=== PATIENT | male | born 1980 | race Caucasian/White ===

== ENCOUNTER 2021-06-29 16:27 | Observation (INO) | payer OTHER, SELFPAY ==
[2021-06-29] VITALS (9 sets, daily range): BP systolic 143–165; BP diastolic 77–95; PULSE 87–134; RESP 14–18; TEMP 36.6–36.7; O2SAT 94–100; BMI 26.1
[2021-06-29] MEDS: Ziprasidone IM 20 MG/ML VIAL IM (16:29)
--- NOTE | 2021-06-29 16:39 | EX.ED.SAOD ---
HPI History of Present Illness Chief Complaint: ETOH Intox Informant: patient Onset/Context/Timing Onset: Today Current Severity: Moderate Maximum Severity: Moderate Narrative Narrative: 41-year-old male reportedly intoxicated trying to get into another person's vehicle and the physicians light. Brought in by police. Patient is belligerent. Limited history. Prior similar symptoms: Yes Recent Illness/Hospitalization: No ROS ROS ED ROS Narrative Unable to obtain due to the patient's mental condition and intoxication. Review of Systems ROS Unobtainable: due to mental condition and due to mental status EXAM Physical Exam Narrative Exam Narrative: Middle-age male argumentative with staff, belligerent and yelling. Police are involved. Currently has been restrained to the bed. Vital signs initial blood pressure 145/85 pulse 134. Afebrile. Pulse ox 94%. HEENT exam pupils round reactive light. Is no signs of trauma to his face or scalp. Neck nontender. Lungs clear to auscultation. Heart tachycardic no murmur. Abdomen soft nontender normal bowel sounds no peritoneal signs. Moving all 4 extremities. Restrained. Nontender no deformity. Neurologically is uncooperative at this time. Is yelling. He is moving all 4 extremities. Const Vital Signs: 06/29/21 16:37 06/29/21 16:58 06/29/21 17:09 Temperature 98.0 F Temperature Source Temporal Pulse Rate 134 H 122 H 120 H Respiratory Rate 14 18 14 Blood Pressure 145/85 H 143/93 H 144/88 H Blood Pressure Mean 105 109 106 Pulse Ox 94 97 97 Oxygen Delivery Method Room Air Nasal Cannula Nasal Cannula Oxygen Flow Rate (L/min) 2 2 06/29/21 18:31 06/29/21 19:23 Temperature Temperature Source Pulse Rate 95 87 Respiratory Rate 14 15 Blood Pressure 145/95 H 148/91 H Blood Pressure Mean 111 110 Pulse Ox 99 99 Oxygen Delivery Method Nasal Cannula Nasal Cannula Oxygen Flow Rate (L/min) 2 2 Positive well nourished and well developed; Negative for cachectic or contractures General Appearance ED: well developed; Negative for cachectic, contractures or pallor Nutritional Appearance: Negative for cachectic HEENT Reports moist mucous membranes atraumatic; Negative for trauma or tenderness Eyes PERRL and EOMs intact bilaterally Neck no lymphadenopathy, supple and no JVD Thyroid: Negative for tender Lymph Lymphatic: no lymphadenopathy noted; Negative for lymphadenopathy Chest Wall inspection of chest normal and palpation of chest normal Resp normal respiratory effort and clear to auscultation bilaterally Auscultation: Negative for rales, rhonchi or wheezes Cardio regular rhythm, S1 normal heart sound, S2 normal heart sound and no murmurs Rate: tachycardic GI soft to palpation, non-tender, non-distended and no masses Inspection: Negative for abdominal distention Palpation: Negative for tender, guarding or rigid Back/Spine no CVA tenderness Extremity General Extremety ED: Negative for edema or tenderness General Extremity: Negative for edema Neuro Neuro Narrative: Yelling, combative and intoxicated. Sensorium / Orientation: alert Psych Attitude: agitated and aggressive Skin General Skin Exam: Negative for jaundice or pallor Lesions: no lesions Rashes: no rashes MDM MDM MDM Narrative Medical decision making narrative: Patient was treated with IM Geodon to try to help him calm down and relax. Screening labs are being obtained with alcohol level. He will be medically cleared for the police to [facility]. Please officer was able to get additional history of the patient's . There is been some discord at home. Recently he was found intoxicated with a 3-year-old child at home. This is all according the . She told it him that she was going to leave him. He has been drinking heavily since that time. Repeat exam patient is doing well at 7:15 PM. He is awake. He is now answering questions. He states he has been drinking heavily for days. He denies any complaints on feeling hung over. His abdomen is benign. His lungs are clear. His heart is mildly tachycardic at 104. His current blood pressure 156/100. Lab Data Attestation: I reviewed the patient's lab results. Lab results narrative: CBC shows a white count 9. Hemoglobin is 16.9. Lites show a gap of 21. BUN is 17 creatinine 1.15. Glucose of 133. Liver enzymes are unremarkable. Alcohol is elevated 476. Tox screen is negative. Labs: Laboratory Results - last 24 hr 06/29/21 06/29/21 06/29/21 16:32 16:32 16:32 WBC 9.1 RBC 5.48 Hgb 16.9 H Hct 50.1 MCV 91.4 MCH 30.8 MCHC 33.7 RDW Std Deviation 42.0 RDW Coeff of Ester 12.5 Plt Count 302 MPV 8.6 Immature Gran % (Auto) 0.400 Neut % (Auto) 70.4 H Lymph % (Auto) 23.4 [place] % (Auto) 4.7 Eos % (Auto) 0.7 Baso % (Auto) 0.4 Absolute Neuts (auto) 6.4 Absolute Lymphs (auto) 2.13 Nucleated RBC % 0 Sodium 143 Potassium 3.5 Chloride 101 Carbon Dioxide 21.0 Anion Gap 21 H BUN 17 Creatinine 1.15 Estim Creat Clear Calc 79.03 Est GFR (MDRD) Af Amer 90 Est GFR (MDRD) Non-Af 74 BUN/Creatinine Ratio 14.8 Glucose 133 H Calcium 8.6 Total Bilirubin 0.30 AST 33 ALT 25 Alkaline Phosphatase 44 L Total Protein 8.4 H Albumin 4.3 Globulin 4.1 Albumin/Globulin Ratio 1.0 Urine Opiates Screen Urine Methadone Screen Ur Barbiturates Screen Ur Phencyclidine Scrn Ur Amphetamines Screen U Methamphetamin-MDMA U Benzodiazepines Scrn Urine Cocaine Screen U Cannabinoids Screen Ur Drug Screen Comment Ethyl Alcohol 476.0 H* 06/29/21 16:45 WBC RBC Hgb Hct MCV MCH MCHC RDW Std Deviation RDW Coeff of Ester Plt Count MPV Immature Gran % (Auto) Neut % (Auto) Lymph % (Auto) [place] % (Auto) Eos % (Auto) Baso % (Auto) Absolute Neuts (auto) Absolute Lymphs (auto) Nucleated RBC % Sodium Potassium Chloride Carbon Dioxide Anion Gap BUN Creatinine Estim Creat Clear Calc Est GFR (MDRD) Af Amer Est GFR (MDRD) Non-Af BUN/Creatinine Ratio Glucose Calcium Total Bilirubin AST ALT Alkaline Phosphatase Total Protein Albumin Globulin Albumin/Globulin Ratio Urine Opiates Screen NEGATIVE Urine Methadone Screen NEGATIVE Ur Barbiturates Screen NEGATIVE Ur Phencyclidine Scrn NEGATIVE Ur Amphetamines Screen NEGATIVE U Methamphetamin-MDMA NEGATIVE U Benzodiazepines Scrn NEGATIVE Urine Cocaine Screen NEGATIVE U Cannabinoids Screen NEGATIVE Ur Drug Screen Comment Ethyl Alcohol Discharge Plan Triage Chief Complaint: ETOH Intox ED Provider: Alonzo Gray Dx/Rx/DC Orders Clinical Impression: Acute alcohol intoxication Instructions: ED Alcohol Abuse, ED Alcohol Intoxication Primary Care Provider: NOT,DEFINED Referrals: NOT,DEFINED [Primary Care Provider] - Disposition Disposition: [facility]
--- NOTE | 2021-06-29 16:43 | ED.RN ---
Pt. current;ly in four point restraints. Pt. jumped out of a taxi and attmeptd to break into a vehicle in hospital parking lot. Pt. was yelling and threateing to kill staff. Pt. currently sleeping.
[2021-06-29 16:55] LABS: Absolute Lymphocyte Count 2.13 X10^3/uL (0.83-4.51); Absolute Neutrophil Count 6.4 X10^3/uL (2.0-7.7); Basophil# 0.04 X10^3/uL; Basophil% 0.4 % (0-1); Eosinophil# 0.06 X10^3/uL; Eosinophils% 0.7 % (0-5); Hematocrit 50.1 % (40-54); Hemoglobin 16.9 g/dL (13.0-16.5); Lymphocyte # 2.13 X10^3/ul (0.83-4.51); Lymphocyte % 23.4 % (19-41); Mean Corp Hgb Conc 33.7 g/dL (32-36); Mean Corpuscular Hgb 30.8 pg (27.0-32.0); Mean Corpuscular Volume 91.4 fL (80-94); Mean Platelet Vol. 8.6 fl (6.2-12.0); Monocyte# 0.43 X10^3/uL; Monocyte% 4.7 % (0-10); NRBC Flagged by Analyzer 0 % (0-5); Neutrophil % 70.4 % (47-70); Platelet Count 302 K/mm3 (150-450); RBC Distribution Width CV 12.5 % (11.6-14.6); Red Blood Count 5.48 M/mm3 (4.6-6.2); White Blood Count 9.1 K/mm3 (4.4-11.0)
[2021-06-29] MEDS: 0.9% Normal Saline 1,000 ML 1000 ML IV (16:57)
[2021-06-29 17:09] LABS: AST(SGOT) 33 U/L (15-37); Alanine Aminotransfer ALT/SGPT 25 U/L (16-61); Albumin, Serum 4.3 g/dL (3.2-5.0); Alkaline Phosphatase 44 U/L (45-117); Anion Gap 21 (5-15); BUN 17 mg/dL (7-18); BUN/Creat Ratio 14.8 RATIO (10-20); Calcium,Total 8.6 mg/dL (8.5-10.1); Chloride 101 mmol/L (98-107); Creatinine, Serum 1.15 mg/dL (0.70-1.30); EST Glomerular Filtration Rate 74 mL/min (>60); Est Glom Filt Rate - Afr Amer 90 mL/min (>60); Estimated Creatinine Clearance 79.03 ml/min; Globulin 4.1 g/dL (2.2-4.2); Glucose 133 mg/dL (74-106); Potassium 3.5 mmol/L (3.5-5.1); Protein, Total 8.4 g/dL (6.4-8.2); Sodium Level 143 mmol/L (136-145)
--- NOTE | 2021-06-29 17:14 | ED.RN ---
Restraints are all off of pt.at this time.
--- NOTE | 2021-06-29 18:10 | CM.ED ---
Addendum entered by Graciela Ayala 06/30/21 10:24: ZACK Note. Rene was [birth year]. ZACK called F[facility] at [facility] and made report related to the patient being home with child and passed out drunk. Graciela Prakashder EDGE RUNNERVitaliy PRYOR Addendum entered by Graciela Ayala 06/29/21 23:08: Late Entry: When clinical social work therapist spoke to patient's mother and reported SI per mother he sounded intoxicated as he was agitated, upset and crying. He also voiced no plan per mother. Mother said that patient had never reported any SI previously. Graciela Lucy EDGE RUNNERVitaliy WEBB Original Note: ZACK Woods met with this va underwriter. She said that patient was brought to the ED by a taxi sent by [facility]. When patient came to the ED he ran out and was severly intoxicated. He was seen by the MD's car and stated it was his. DIA Woods called patient's , Graciela Betancourt [phone]. Patient and have been together for 9 years but patient's drinking has been real bad for 1 1/2 years. said that patient's drinking got worse during the pandemic when patient was isolated as he worked at home and is a social butterfly. Patient had been at [facility] from 09/21 till 11/23. Patient and his have a son, Simeon age 3 1/2 11/23/27. said that patient went to parents and was there for one month without drinking. Patient got laid off but located a new job in May and came back. Three weeks ago patient was taking care of the child and when she came home patient was drunk. said that she told him that she wants a divorce. said that patient drinks vodka and the cleaning lady found Brittani. Per , no drugs, however patient was set to receive the Vivitrol shot and could not as he tested + for oxy. said that she left this weekend. feels that patient's depression is related to his drinking. said that patient drank all weekend long. She found out patient's current state as his HR called her and stated he was slurring his words and in coherent. said that patient has not made a statement to her about harming or hurting self. She reports that patient has said you divorce me and how I am going to live without you. Parents have said that patient can not go back to their house. goes to AA meeting. HRO said that said that patient has reported SI to his mom, Alessandra Stewart and her contact number is [phone]. SW spoke to patient's mother. SHe said that there is a family history of alcoholism and his uncle of OD. SHe said that this afternoon patient called her and his brother and said I am a loser and I want to kill myself. Alessandra feels that patient is depressed and the depression overtook him. HRO completed pink slip for patient. Graciela PRYOR
[2021-06-29 18:13] LABS: Amphetamine Urine VISTA NEGATIVE (<1000 ng/mL); Barbiturate Urine VISTA NEGATIVE (< 200 ng/mL); Benzodiazepine Urine VISTA NEGATIVE (< 200 ng/mL); Cocaine Urine VISTA NEGATIVE (< 300 ng/mL); Ecstacy Urine VISTA NEGATIVE (< 500 ng/mL); Methadone Urine VISTA NEGATIVE (< 300 ng/mL); PCP Urine VISTA NEGATIVE (< 25 ng/mL); THC Urine VISTA NEGATIVE (< 50 ng/mL); Vista UDS pH Range 5
--- NOTE | 2021-06-29 20:19 | HP.PCM.HOS_ITS ---
HPI - General General Date of Admission: 06/29/21 HPI Narrative JASON SIMS, is a 41 M with a significant history of alcoholism who presents intoxicated and with plan for alcohol detoxification. Patient reports drinking for the last 20 years. He report that he had been sober for 30 days and resumed drinking on the day of presentation. Reportedly he called 180 and was instructed to come to the emergency department. However at the parking lot patient's was trying to enter into physicians vehicle. The police was called. Also reportedly patient had been intoxicated recently while taking care of his 3-year-old daughter. Patient reported last time he drank was about 2 hours prior to presentation. He reports a history of depression. [facility] Medical History Depression Home Medications Unobtainable 06/29/21 [History Last Taken Unknown] Allergy/AdvReac Type Severity Reaction Status Date / Time Unable to Assess Allergy Verified 06/29/21 20:32 Family History Other Alcohol abuse Surgical History no surgical history no surgical history Social History Smoking Status: Never smoker ROS ROS Narrative Constitutional: Denies fever, chills, fatigue, anorexia and change in weight Eyes: Denies blurry vision, change in eye color, change in vision, discharge from eye(s), double vision, erythema, eye pain, loss of vision or other HEENT: Denies abnormal hearing, dysphagia, ear pain, epistaxis, headache(s), hearing loss, nasal congestion, nasal discharge, post nasal drip, sinus pressure, sore throat or other Cardiovascular: Denies chest pain or palpitations. Denies dyspnea on exertion, orthopnea and paroxysmal nocturnal dyspnea Respiratory/Chest: Denies cough, excessive phlegm production, shortness of breath with exertion and wheezing Gastrointestinal: Denies abdominal pain, coffee ground emesis, constipation, diarrhea, dyspepsia, hematemesis, hematochezia, loose stools, melena, nausea, vomiting or other Genitourinary: Denies burning urination, difficulty urinating, dysuria, hematuria, nocturia, urinary frequency, urinary hesitancy, urinary incontinence, urinary urgency or other Musculoskeletal: Denies arthralgias, back pain, joint pain, joint stiffness, joint swelling, myalgias, neck pain or other Neurologic: Confusion and agitation. Denies abnormal gait, abnormal speech, disequilibrium, dizziness, focal weakness, headache(s), numbness, paresthesias, seizure-like activity, seizures, syncope, tingling, tremor(s) or other Psychiatric: Reports depression. Denies anxiety, homicidal ideation, suicidal ideation or other Endocrinology: Denies change in body appearance, cold intolerance, excessive sweating, heat intolerance, polydipsia, polyuria or other Hematologic/Lymphatic: Denies anemia, easy bleeding, easy bruising, lymphadenopathy or other Integumentary: Denies rashes Allergic/Immunologic: Denies rhinitis, hives, eczema, asthma or other Vital Signs Vital Signs Vital Signs: 06/29/21 16:37 06/29/21 16:58 06/29/21 17:09 Temperature 98.0 F Temperature Source Temporal Pulse Rate 134 H 122 H 120 H Respiratory Rate 14 18 14 Blood Pressure 145/85 H 143/93 H 144/88 H Blood Pressure Mean 105 109 106 Pulse Ox 94 97 97 Oxygen Delivery Method Room Air Nasal Cannula Nasal Cannula Oxygen Flow Rate (L/min) 2 2 06/29/21 18:31 06/29/21 19:23 Temperature Temperature Source Pulse Rate 95 87 Respiratory Rate 14 15 Blood Pressure 145/95 H 148/91 H Blood Pressure Mean 111 110 Pulse Ox 99 99 Oxygen Delivery Method Nasal Cannula Nasal Cannula Oxygen Flow Rate (L/min) 2 2 Weight Weight: 75.6 kg Body Mass Index (BMI) 26.1 Physical Exam Narrative Physical exam: General: Well-nourished, well-developed. Head: Normocephalic, atraumatic, no tenderness Eyes: PERRLA, EOMI ENT, no trauma, moist mucous membranes, no rhinorrhea Neck: Nontender, full range of motion, no spinal tenderness, deformities, step- off CVS: Regular rate and rhythm. S1-S2 present. No murmur, gallop or rub. Respiratory : clear to auscultation bilaterally, chest wall nontender, no whee zing Abdomen: Soft, nontender, nondistended, normal bowel sounds, no masses : Deferred Back: Nontender, no CVA tenderness, no midline spinal tenderness, deformities, step-offs Extremities: Nontender full range of motion, no trauma Skin: Normal color, no trauma, abrasions Neuro: Alert, oriented, cranial nerves II through XII grossly intact. Psychiatry: Normal mood. Normal affect. Not depressed. Not anxious. Results Lab / Micro Data Result Diagrams: 06/29/21 16:32 06/29/21 16:32 Labs: Laboratory Results - last 24 hr 06/29/21 16:32: WBC 9.1, RBC 5.48, Hgb 16.9 H, Hct 50.1, MCV 91.4, MCH 30.8, MCHC 33.7, RDW Std Deviation 42.0, RDW Coeff of Ester 12.5, Plt Count 302, MPV 8.6, Immature Gran % (Auto) 0.400, Neut % (Auto) 70.4 H, Lymph % (Auto) 23.4, [place] % (Auto) 4.7, Eos % (Auto) 0.7, Baso % (Auto) 0.4, Absolute Neuts (auto) 6.4, Absolute Lymphs (auto) 2.13, Nucleated RBC % 0 06/29/21 16:32: Sodium 143, Potassium 3.5, Chloride 101, Carbon Dioxide 21.0, Anion Gap 21 H, BUN 17, Creatinine 1.15, Estim Creat Clear Calc 79.03, Est GFR (MDRD) Af Amer 90, Est GFR (MDRD) Non-Af 74, BUN/Creatinine Ratio 14.8, Glucose 133 H, Calcium 8.6, Total Bilirubin 0.30, AST 33, ALT 25, Alkaline Phosphatase 44 L, Total Protein 8.4 H, Albumin 4.3, Globulin 4.1, Albumin/Globulin Ratio 1.0 06/29/21 16:32: Ethyl Alcohol 476.0 H* 06/29/21 16:45: Urine Opiates Screen NEGATIVE, Urine Methadone Screen NEGATIVE, Ur Barbiturates Screen NEGATIVE, Ur Phencyclidine Scrn NEGATIVE, Ur Amphetamines Screen NEGATIVE, U Methamphetamin-MDMA NEGATIVE, U Benzodiazepines Scrn NEGATIVE, Urine Cocaine Screen NEGATIVE, U Cannabinoids Screen NEGATIVE, Ur Drug Screen Comment Assessment & Plan Assessment/Plan (1) Acute alcohol intoxication: QUALIFIERS: Complication of substance-induced condition: with delirium Qualified Code(s): F10.921 - Alcohol use, unspecified with intoxication delirium (2) Desire for detoxification: PLAN: Alcohol intoxication; dependence and desire for detoxification CBC reviewed showed erythrocytosis. Toxicology showed negative opiates; negative amphetamines and methamphetamines; negative cannabinoids; and negative urine cocaine. Ethanol level was 476 Bicarb of 21 with anion gap of 21. AST and ALT normal. Patient be started on phenobarbital and other adjunctive medications: Gabapentin as needed; dicyclomine as needed; Vistaril as needed; Imodium as needed; trazodone as needed; Zofran as needed; scheduled thiamine; and schedule folic acid. Start phenobarbital; gabapentin and trazodone and patient is less intoxicated. Monitor CIWA score DVT prophylaxis Low risk Encourage to ambulate Charges/Coding Visit Charges Inpatient E&M: 78718 Init Hosp L2
--- NOTE | 2021-06-29 22:45 | NURSING ---
Upon arrival to floor, patient being uncooperative with staff. Patient wanted to leave AMA, but pink slip paperwork was incidentally found by VET ASSISTANT. Calls made to warehouse processor and house resource officer due to patient's escalating behaviors. He reiterated he did not want to do detox. After multiple calls made by staff, it was deemed appropriate to release patient into the custody of the police. Patient handcuffed and taken to [facility]. His $129 mcguire was retrieved from the lock box and returned before discharge.
--- NOTE | 2021-06-29 22:52 | PCM.HOSP.N ---
Documented by User: Brigida Booth NP-C 06/29/21 22:59 Hospitalist Note Patient was medically cleared to go to correction following evaluation in ER however patient stated he wanted to go through inpatient detoxification. However upon arrival to floor patient unwilling to sign paperwork for [facility] program. Patient states he never agreed to detox treatment and wants to leave. Resource officer at bedside and states that if patient is medically cleared she will transport patient to correction since he wants to leave. Patient was already medically cleared in ER. [facility] transport form completed by ER physician who provided initial medical clearance. Patient assessment unchanged from prior evaluation. Patient subsequently transported to correction per Omer MIRANDA. Documented by User: Dr. Severiano Smith MD 06/30/21 07:12 Addendum Addendum: Patient was seen and examined independently at the emergency department. Patient reported that upon assessment the patient can make decisions and he want to leave AGAINST MEDICAL ADVICE. I agree.
--- NOTE | 2021-06-30 10:26 | CM.ED ---
Late Entry for 06/29/21 FOLDER MACHINE called this ad copy writer and said that patient wanted to leave AMA but had a pink slip. SW explained pink slips. FOLDER MACHINE said that patient is denying SI and is future oriented. SW recommended that FOLDER MACHINE call Crisis. FOLDER MACHINE called back and said that she called crisis and they said that if patient is not reporting SI then she should not do a pink slip. FOLDER MACHINE said that HRO is taking patient to alf. SW noted that if patient is going to alf and if they have any concerns regarding SI they can call crisis. Plan: FOLDER MACHINE will document that patient in not SI/HI. Plan is for patient to go to alf. Graciela PRYOR
== END 2021-06-29 23:10 | disposition left against medical advice (07) ==
LOC: ED 20:30 → MS3 20:37
PROVIDERS: Admitting Provider Hospitalist; Emergency Provider Emergency Medicine; Visit Provider Hospitalist
DX: F10.221 Alcohol dependence with intoxication delirium (principal); Y90.8 Blood alcohol level of 240 mg/100 ml or more
CPT/HCPCS: 36415; 80053; 80307; 82077; 85025; 96360; 96372; 99218; 99285; J7030; A4216; G0378; J3486

== ENCOUNTER 2021-08-17 10:22 | Emergency (ER) | payer OTHER, SELFPAY ==
[2021-08-17 10:25] VITALS: BP 179/116; PULSE 128; RESP 22; TEMP 36.8; O2SAT 99; BMI 25.2
--- NOTE | 2021-08-17 10:44 | EKG12_ITS ---
Test Reason : SEIZURES Blood Pressure : / mmHG Vent. Rate : 111 BPM Atrial Rate : 111 BPM P-R Int : 156 ms QRS Dur : 090 ms QT Int : 330 ms P-R-T Axes : 064 046 029 degrees QTc Int : 448 ms Sinus tachycardia Otherwise normal ECG Confirmed by JUNITO WAITE, CEDRICK ([id number]), editor book ARLINE NOLASCO ([id number]) on 08/19/2021 9:47:55 AM Referred By: CORINA Confirmed By:CEDRICK WILD MD
[2021-08-17 10:47] LABS: Absolute Neutrophil Count 3.5 X10^3/uL (2.0-7.7); Basophil# 0.08 X10^3/uL; Basophil% 1.1 % (0-1); Eosinophil# 0.13 X10^3/uL; Eosinophils% 1.9 % (0-5); Hematocrit 45.5 % (40-54); Hemoglobin 15.3 g/dL (13.0-16.5); Lymphocyte % 32.9 % (19-41); Mean Corp Hgb Conc 33.6 g/dL (32-36); Mean Corpuscular Hgb 31.1 pg (27.0-32.0); Mean Corpuscular Volume 92.5 fL (80-94); Monocyte# 0.78 X10^3/uL; Monocyte% 11.1 % (0-10); NRBC Flagged by Analyzer 0 % (0-5); Neutrophil # 3.45 X10^3/uL (2.7-7.7); Neutrophil % 49.3 % (47-70); Platelet Count 244 K/mm3 (150-450); RBC Distribution Width CV 14.4 % (11.6-14.6); Red Blood Count 4.92 M/mm3 (4.6-6.2)
--- NOTE | 2021-08-17 11:10 | CT_ITS ---
STUDY: CT BRAIN WITHOUT CONTRAST REASON FOR EXAM: Male, 41 years old. Seizure RADIATION DOSAGE (If Supplied By Facility): CTDIvol = ( 44.99 ) mGy, DLP = ( 762.36 ) mGycm TECHNIQUE: Transaxial CT imaging of the brain was performed without administration of intravenous contrast material. Individualized dose optimization techniques were used for this CT. COMPARISON: No relevant priors. FINDINGS: Normal soft tissue structures. Normal calvarium. Normal size ventricles and extra-axial spaces for the patient''s age. Normal white matter tracts of the cerebral hemispheres. Normal basal ganglia and thalami. Normal brainstem. Normal cerebellum. There is no intracranial hemorrhage. There are no findings of an acute ischemic infarction. Air-fluid level in the right maxillary sinus. CT/Brain/Head without Contrast IMPRESSION: Normal unenhanced CT scan of the brain. Electronically Signed: Joaquim Chacko MD at 11:51 EST , Service support ,
[2021-08-17 11:14] LABS: Alcohol, Blood (Medical)-Serum < 3.0 mg/dL
[2021-08-17 11:18] LABS: ALB/GLOB Ratio 0.9 RATIO (0.9-2.4); AST(SGOT) 43 U/L (15-37); Alanine Aminotransfer ALT/SGPT 57 U/L (16-61); Albumin, Serum 3.9 g/dL (3.2-5.0); Alkaline Phosphatase 52 U/L (45-117); Anion Gap 16 (5-15); BUN 16 mg/dL (7-18); BUN/Creat Ratio 14.7 RATIO (10-20); Calcium,Total 8.9 mg/dL (8.5-10.1); Chloride 104 mmol/L (98-107); Creatinine, Serum 1.09 mg/dL (0.70-1.30); EST Glomerular Filtration Rate 79 mL/min (>60); Est Glom Filt Rate - Afr Amer 96 mL/min (>60); Estimated Creatinine Clearance 86.28 ml/min; Globulin 4.5 g/dL (2.2-4.2); Glucose 147 mg/dL (74-106); Protein, Total 8.4 g/dL (6.4-8.2); Sodium Level 135 mmol/L (136-145)
--- NOTE | 2021-08-17 11:21 | EDS_ITS ---
HPI History of Present Illness Chief Complaint: Seizure Informant: patient Onset/Context/Timing Onset: Today Context: Sudden Onset Narrative Narrative: Patient presents with a seizure that occurred today. Patient remembers waking up this morning. Patient remembers getting dressed. Patient states he went to the gym. Patient states that the next thing he remembers is waking up in the ambulance. Patient states she did notice a twinkle in his vision prior to seizure today. EMS reports that it was generalized and shaking. Patient denies biting his tongue. Patient denies any incontinence of urine or stool. PFSH PFS Medical History Alcohol abuse Depression Home Medications naltrexone 50 mg PO DAILY 08/17/21 [History Last Taken Unknown] Allergy/AdvReac Type Severity Reaction Status Date / Time No Known Allergies Allergy Verified 08/17/21 10:30 Family History Other Alcohol abuse Social History Smoking Status: Never smoker ROS ROS ED Constitutional Constitutional ED: Denies chills or fever(s) Eyes Eyes: Reports change in vision; Denies blurry vision or diplopia ENT ENT ED: Denies rhinorrhea or sore throat Cardiovascular Cardiovascular: Denies chest pain or palpitations Respiratory/Chest Respiratory/Chest: Denies cough or dyspnea Gastrointestinal Gastrointestinal: Denies nausea or vomiting Genitourinary Genitourinary ED: Denies dysuria or hematuria Musculoskeletal Musculoskeletal: Reports back pain; Denies neck pain Integumentary Denies abscess or rash Neurologic Neurologic: Denies headache(s) or weakness Allergic/Immunologic Allergic/Immunologic ED: Denies mouth swelling or urticaria EXAM Physical Exam Const Vital Signs: 08/17/21 10:25 08/17/21 11:56 08/17/21 13:16 Temperature 98.3 F Temperature Source Oral Pulse Rate 128 H 88 84 Respiratory Rate 22 H 14 16 Blood Pressure 179/116 H 155/100 H 154/99 H Blood Pressure Mean 137 118 117 Pulse Ox 99 98 97 Oxygen Delivery Method Room Air Room Air Positive well nourished and well developed General Appearance ED: well developed HEENT Reports moist mucous membranes Neck supple and no JVD Resp normal respiratory effort and clear to auscultation bilaterally Cardio regular rate, regular rhythm and no murmurs GI normal to inspection, nondistended, normoactive bowel sounds and non-tender Palpation: soft Extremity normal to inspection General Extremety ED: Negative for edema or tenderness General Extremity: Negative for edema Neuro oriented x3, CN's II-XII intact bilaterally and no sensory deficits noted Sensorium / Orientation: alert Motor Exam: strength 5/5 throughout Psych mental status grossly normal Skin no rashes or lesions noted MDM MDM MDM Narrative Medical decision making narrative: Seizure precautions were maintained. EKG was obtained. On my interpretation, it showed a sinus tachycardia with a rate of 111. NM interval, QRS interval, and QTc intervals were all normal. [place] was normal. There are no acute ST or T wave changes. CBC and comprehensive metabolic profile were within normal limits. Serum alcohol level was normal. CT scan of the brain was obtained. There is no acute intracranial abnormality. Patient had no seizure activity here in the emergency department. It is unclear if this was a true tonic-clonic seizure. Patient is feeling better on reevaluation. Patient wants to go home. Patient was advised to avoid any alcohol. Patient was instructed to follow-up with his primary care physician in 3 to 5 days. Patient was instructed return if worse in any way. Patient understood and was agreeable with the plan. All questions were answered. Lab Data Attestation: I reviewed the patient's lab results. Labs: Laboratory Results - last 24 hr 08/17/21 08/17/21 08/17/21 10:39 10:39 10:39 WBC 7.0 RBC 4.92 Hgb 15.3 Hct 45.5 MCV 92.5 MCH 31.1 MCHC 33.6 RDW Std Deviation 49.0 H RDW Coeff of Ester 14.4 Plt Count 244 MPV 9.0 Immature Gran % (Auto) 3.700 H Neut % (Auto) 49.3 Lymph % (Auto) 32.9 [place] % (Auto) 11.1 H Eos % (Auto) 1.9 Baso % (Auto) 1.1 H Absolute Neuts (auto) 3.5 Absolute Lymphs (auto) 2.30 Nucleated RBC % 0 Sodium 135 L Potassium 4.0 Chloride 104 Carbon Dioxide 15.0 L Anion Gap 16 H BUN 16 Creatinine 1.09 Estim Creat Clear Calc 86.28 Est GFR (MDRD) Af Amer 96 Est GFR (MDRD) Non-Af 79 BUN/Creatinine Ratio 14.7 Glucose 147 H Calcium 8.9 Total Bilirubin 0.90 AST 43 H ALT 57 Alkaline Phosphatase 52 Total Protein 8.4 H Albumin 3.9 Globulin 4.5 H Albumin/Globulin Ratio 0.9 Ethyl Alcohol < 3.0 Radiography Diagnostic Testing: Clinical Impression(s) from Imaging Studies Brain CT 08/17/21 11:10 IMPRESSION: Normal unenhanced CT scan of the brain. Electronically Signed: Joaquim Chacko MD at 11:51 EST , Service support , EKG Initial EKG: Attestation: I personally reviewed and interpreted this EKG as follows: Interpretation: No Acute Injury Pattern and Sinus Tachycardia (111) Discharge Plan Triage Chief Complaint: Seizure ED Provider: Jose Cruz Dx/Rx/DC Orders Clinical Impression: Syncope and collapse Instructions: ED Fainting, Uncertain Cause, ED Seizure New Onset Unknown ... Prescriptions: No Action naltrexone 50 mg tablet 50 mg PO DAILY RF: 0 Primary Care Provider: Care Physician,No Primary Referrals: Jose Fontenot MD [STAFF PHYSICIAN] - 3-5 Days Care Physician,No Primary [Primary Care Provider] - Disposition Disposition: Home, Self Care
[2021-08-17 11:56] VITALS: BP 155/100; PULSE 88; RESP 14; O2SAT 98
[2021-08-17 13:16] VITALS: BP 154/99; PULSE 84; RESP 16; O2SAT 97
[2021-08-17 14:56] VITALS: BP 148/90; PULSE 89; RESP 14; O2SAT 97
== END 2021-08-17 14:57 | disposition home or self-care (01) ==
PROVIDERS: Emergency Provider Emergency Medicine
DX: R55 Syncope and collapse (principal)
CPT/HCPCS: 70450; 80053; 82077; 85025; 93005; 99285; A4216

== ENCOUNTER 2022-05-25 17:25 | Emergency (ER) | payer BC, MEDICAID, SELFPAY ==
[2022-05-25 17:26] VITALS: BP 208/91; PULSE 135; RESP 16; TEMP 36.4; O2SAT 97; BMI 24.3
--- NOTE | 2022-05-25 17:57 | EKG12_ITS ---
Test Reason : SEIZURE Blood Pressure : / mmHG Vent. Rate : 117 BPM Atrial Rate : 117 BPM P-R Int : 122 ms QRS Dur : 090 ms QT Int : 330 ms P-R-T Axes : 037 039 035 degrees QTc Int : 460 ms Sinus tachycardia Otherwise normal ECG Confirmed by JANNETTE WAITE, ABRAN ([id number]), features editor ARLINE NOLASCO ([id number]) on 05/27/2022 1:24:48 PM Referred By: PL Confirmed By:EBONY BHATIA MD
--- NOTE | 2022-05-25 17:57 | CT_ITS ---
EXAMINATION : Head CT w/out contrast HISTORY : Trauma COMPARISON : None. TECHNIQUE : Multiple contiguous axial images were obtained from the skull base to the vertex without intravenous contrast. A radiation dose optimization technique was used for this scan. FINDINGS : The ventricles and sulci are normal in size. There is no evidence for acute intracranial hemorrhage, mass effect, or midline shift. There is no extra-axial fluid collection. There is normal marinelli-white differentiation, without CT evidence of acute ischemia or infarct. The skull base and calvarium are unremarkable. The orbits are unremarkable. The paranasal sinuses are clear. The mastoid air cells are well-aerated. The soft tissues are unremarkable. CT/Brain/Head without Contrast IMPRESSION: No acute intracranial abnormality. Electronically Signed: Alex Diallo MD at 18:46 EDT ,
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
[2022-05-25] MEDS: 0.9% Normal Saline 1,000 ML 1000 ML IV (18:07)
[2022-05-25] MEDS: Ondansetron 4 MG/2 ML Vial IV (18:08)
[2022-05-25 18:17] LABS: Absolute Lymphocyte Count 3.68 X10^3/uL (0.83-4.51); Absolute Neutrophil Count 7.7 X10^3/uL (2.0-7.7); Basophil# 0.08 X10^3/uL; Basophil% 0.6 % (0-1); Eosinophil# 0.08 X10^3/uL; Eosinophils% 0.6 % (0-5); Hematocrit 46.8 % (40-54); Hemoglobin 15.3 g/dL (13.0-16.5); Lymphocyte # 3.68 X10^3/ul (0.83-4.51); Lymphocyte % 28.8 % (19-41); Mean Corp Hgb Conc 32.7 g/dL (32-36); Mean Corpuscular Hgb 31.3 pg (27.0-32.0); Mean Corpuscular Volume 95.7 fL (80-94); Mean Platelet Vol. 9.2 fl (6.2-12.0); Monocyte# 1.15 X10^3/uL; NRBC Flagged by Analyzer 0 % (0-5); Neutrophil # 7.73 X10^3/uL (2.7-7.7); Neutrophil % 60.5 % (47-70); Platelet Count 219 K/mm3 (150-450); RBC Distribution Width CV 14.4 % (11.6-14.6); RBC Distribution Width SD 50.5 fl (35.1-43.9); Red Blood Count 4.89 M/mm3 (4.6-6.2); White Blood Count 12.8 K/mm3 (4.4-11.0)
[2022-05-25 18:28] LABS: ALB/GLOB Ratio 1.1 RATIO (0.9-2.4); AST(SGOT) 57 U/L (15-37); Alanine Aminotransfer ALT/SGPT 48 U/L (16-61); Albumin, Serum 4.4 g/dL (3.2-5.0); Alkaline Phosphatase 50 U/L (45-117); Anion Gap 32 (5-15); BUN 14 mg/dL (7-18); BUN/Creat Ratio 9.2 RATIO (10-20); Calcium,Total 9.3 mg/dL (8.5-10.1); Chloride 94 mmol/L (98-107); Creatinine, Serum 1.52 mg/dL (0.70-1.30); EST Glomerular Filtration Rate 54 mL/min (>60); Est Glom Filt Rate - Afr Amer 65 mL/min (>60); Estimated Creatinine Clearance 63.31 ml/min; Globulin 4.1 g/dL (2.2-4.2); Glucose 206 mg/dL (74-106); Potassium 3.2 mmol/L (3.5-5.1); Prolactin 70.6 ng/mL; Protein, Total 8.5 g/dL (6.4-8.2); Sodium Level 136 mmol/L (136-145)
[2022-05-25 18:47] LABS: Bacteria 0 SEEN /hpf (None Seen); Squamous Epithelial Cells - UA 0 SEEN /hpf (0-5)
[2022-05-25 18:49] LABS: Color, Urine Yellow (Yellow); Glucose, Dipstick Normal (Normal); Ketone-Dipstick 5 mg/dl (Negative); Leukocyte Esterase-Dipstick Negative /ul (Negative); Nitrite-Dipstick Negative (Negative); Occult Blood-Urine 150 /ul (Negative); Protein-Dipstick 100 mg/dl (Negative); Urine Bilirubin Dipstick Negative (Negative); Urine Clarity Clear (Clear); Urine Urobilinogen Normal (Normal)
[2022-05-25] MEDS: Potassium Chloride Oral Tablet 20 MEQ 40 MEQ PO (18:49)
[2022-05-25 18:57] LABS: Lactic Acid 12.7 mmol/L (0.4-1.9)
[2022-05-25 19:00] LABS: Red Blood Cells-Urine 5-10 SEEN /hpf (0-5); White Blood Cells 0-5 SEEN /hpf (0-5)
[2022-05-25 19:02] LABS: Amphetamine Urine VISTA NEGATIVE (<1000 ng/mL); Barbiturate Urine VISTA NEGATIVE (< 200 ng/mL); Benzodiazepine Urine VISTA NEGATIVE (< 200 ng/mL); Cocaine Urine VISTA NEGATIVE (< 300 ng/mL); Ecstacy Urine VISTA NEGATIVE (< 500 ng/mL); Hyaline Cast 0-5 SEEN /lpf (0-5); Methadone Urine VISTA NEGATIVE (< 300 ng/mL); Mucous, Urine 3+ /hpf (<or=2+); PCP Urine VISTA NEGATIVE (< 25 ng/mL); THC Urine VISTA NEGATIVE (< 50 ng/mL); Vista UDS pH Range 6
[2022-05-25] MEDS: 0.9% Normal Saline 1,000 ML 999 ML IV (19:21)
[2022-05-25 19:22] VITALS: BP 160/87; PULSE 96; RESP 25; O2SAT 99
[2022-05-25 21:24] LABS: Lactic Acid 0.9 mmol/L (0.4-1.9)
[2022-05-25 21:26] LABS: Anion Gap 10 (5-15); BUN 11 mg/dL (7-18); BUN/Creat Ratio 16.7 RATIO (10-20); Calcium,Total 8.1 mg/dL (8.5-10.1); Chloride 104 mmol/L (98-107); Creatinine, Serum 0.66 mg/dL (0.70-1.30); EST Glomerular Filtration Rate 141 mL/min (>60); Est Glom Filt Rate - Afr Amer 170 mL/min (>60); Glucose 99 mg/dL (74-106); Potassium 3.7 mmol/L (3.5-5.1); Sodium Level 138 mmol/L (136-145)
[2022-05-25 22:15] LABS: Reflex Lactate? Y
[2022-05-25 22:20] VITALS: BP 160/110; PULSE 70; RESP 15; O2SAT 98
--- NOTE | 2022-06-02 15:22 | CM.ED ---
ZACK spoke to MD Keating who added an addendum to the chart making a referral to [facility] for neurology consult in regards to patient's seizures. ZACK faxed medical record to [facility]. Confirmation fax was received. ZACK called patient and updated him that referral and medical records had been faxed to [facility] and if any additional is needed to contact the hospital. Graciela PRYOR
== END 2022-05-25 22:20 | disposition home or self-care (01) ==
PROVIDERS: Emergency Provider Emergency Medicine; Visit Provider Emergency Medicine
DX: R56.9 Unspecified convulsions (principal); F32.A Depression, unspecified; Z79.899 Other long term (current) drug therapy
CPT/HCPCS: 36415; 70450; 80048; 80053; 80307; 81001; 82077; 83605; 84146; 85025; 93005; 96361; 96374; 99285; J7030; A4216; J2405